=== PATIENT | male | born 1970 | race African-American/Black ===

== ENCOUNTER 2024-02-20 18:57 | Emergency (ER) | payer SELFPAY ==
[2024-02-20] VITALS (9 sets, daily range): BP systolic 155–169; BP diastolic 102–109; PULSE 84–95; RESP 15–19; TEMP 36.8; O2SAT 96–99; BMI 50.4
--- NOTE | 2024-02-20 19:22 | ED.VIS.DYS ---
HPI History of Present Illness Chief Complaint: Asthma [facility] Medical History (Updated 02/20/24 @ 19:10 by Lilly Rivera) Asthma Home Medications ?Medication ?Instructions ?Recorded ?Last Taken ?Type albuterol sulfate 90 mcg/actuation 90 mcg IH Q6H PRN PRN Asthma 05/17/13 Unknown History aerosol inhaler (Proventil HFA) metoprolol tartrate 50 mg tablet 50 mg PO BID 05/17/13 Unknown History hydralazine 50 mg tablet 50 mg PO TID ##90 12/25/14 Unknown Rx ciprofloxacin HCl 500 mg tablet 500 mg PO BID ##10 05/27/16 Unknown Rx ipratropium bromide 0.02 % 2.5 ml inhalation Q6H PRN 02/20/24 Unknown Rx solution for inhalation shortness of breath or wheezing #150 mL prednisone 50 mg tablet 50 mg PO DAILY #5 tabs 02/20/24 Unknown Rx Allergy/AdvReac Type Severity Reaction Status Date / Time hydrochlorothiazide Allergy Other Verified 02/20/24 19:10 amoxicillin (Amoxicillin) AdvReac Upset Verified 02/20/24 19:10 Stomach Surgical History no surgical history Social History Smoking Status: Never smoker EXAM Physical Exam Const Vital Signs: 02/20/24 18:57 02/20/24 19:00 02/20/24 19:04 Temperature 98.2 F 98.2 F Temperature Source Oral Oral Pulse Rate 91 91 Respiratory Rate 19 H 17 Respiratory Effort Respiratory Pattern Blood Pressure 155/103 H 155/103 H Blood Pressure Mean 120 120 Pulse Ox 96 96 Oxygen Delivery Method Room Air Room Air 02/20/24 19:11 02/20/24 19:46 02/20/24 19:51 Temperature 98.2 F Temperature Source Oral Pulse Rate 84 88 Respiratory Rate 16 15 Respiratory Effort Short of Breath Labored Respiratory Pattern Normal Blood Pressure 169/109 H Blood Pressure Mean 129 Pulse Ox 97 Oxygen Delivery Method Room Air 02/20/24 20:49 02/20/24 21:17 Temperature 98.2 F Temperature Source Pulse Rate 95 95 Respiratory Rate 19 H 19 H Respiratory Effort Respiratory Pattern Blood Pressure 169/102 H 169/102 H Blood Pressure Mean 124 124 Pulse Ox 99 99 Oxygen Delivery Method Room Air MDM MDM MDM Narrative Medical decision making narrative: HISTORY OF PRESENT ILLNESS: 53-year-old male presents with Concern for asthma attack. Notes is for wheezing, received Solu-Medrol and DuoNeb via EMS. The patient denies recent surgery in the last 4 weeks or immobilization in the last 3 days, denies previous diagnosis of DVT or PE, hemoptysis, unilateral leg swelling or malignancy with treatment the last 6 months or palliative. No estrogen use noted. REVIEW OF SYSTEMS: Pertinent positives: Shortness of breath Pertinent negatives: Chest pain, leg swelling, hemoptysis PHYSICAL EXAM: Nursing triage notes reviewed, Vital signs reviewed Constitutional: please see mdm HENT: MMM Eyes: Pupils equal round and reactive to light, Extraocular muscles intact Neck: No stridor, no JVD, full neck ROM Lungs: Clear to auscultation, No wheezing or rales. No increased work of breathing, no conversational dyspnea, no accessory muscle use, no nasal flaring. No respiratory distress noted Heart: Regular rate and rhythm, No murmurs, No rubs and No gallops, 2+ distal pulses (radial, femoral, posterior tibial) in all extremities Abdomen: Soft, there is no tenderness, rigidity, rebound or guarding, no obvious peritoneal signs, no palpable pulsatile abdominal masses, no auscultated abdominal bruit : No CVAT Extremities: No edema Neuro: No new focal neurological deficits, cranial nerves II through XII intact, 5/5 strength in all present extremities. Intact sensation to light touch in all present extremities, 2+ reflexes bilateral patella tendons. Skin: No rash or lesions noted MEDICAL DECISION MAKING: Chief Complaint: Shortness of breath External records reviewed: Reviewed prior imaging Factors affecting care: asthma Social determinants of health: none History obtained from others: none Consults: none [facility] Narrative: Patient was initially hemodynamically stable, afebrile and nontoxic-appearing. Exam with wheezing consistent with asthma. I considered the following differential diagnosis: Asthma exacerbation, pneumonia, COVID, RSV, flu, anemia, ACS, PE While considered pulm embolism without this is less likely given low risk Wells score, focal lung findings and a more plausible diagnosis of asthma exacerbation ALL IMAGES (IF OBTAINED) HAVE BEEN PERSONALLY REVIEWED AND INTERPRETED BY MYSELF. High-sensitivity troponin is negative, no evidence of myocardial ischemia but no chest pain this adequately rules out ACS I have personally reviewed the patient's chest x-ray. Chest x-ray is unremarkable for pulmonary edema, pneumothorax, pneumonia or focal cardiopulmonary abnormality. EKG COVID/RSV/flu is negative CBC with no leukocytosis, no anemia thrombocytopenia BMP without electrolyte abnormality, noted JAZMIN on CKD Given severe JAZMIN on CKD, asthma exacerbation I offered the patient admission. He was alert and oriented x 3 and had capacity to make his own medical decisions and chose to forego admission at this time. Discussed risk of acute renal failure, risk of needing dialysis. The patient acknowledges the risk and still wanted to go home. He stated he would rather follow-up with his primary doctor. He was prescribed steroids, ipratropium nebulized solution The patient and/or family, caregivers express understanding. The patient and/or family, caregivers agrees with the plan. Shared decision making: I will have a discussion with the patient and or visitors regarding risk/benefits of further testing or admission. They will be made aware of of the risk/benefits inherent in this decision they will be given the opportunity to voice understanding. Total critical care time today provided was at least 0 minutes. This excludes separately billable procedures. Critical care time (if documented) is secondary to the patient having high probability of clinically significant/life threatening deterioration in the patient's condition which required my urgent intervention. Impression: 1. Acute asthma exacerbation 2. JAZMIN on CKD Dispo: Discharge home This note was generated with [employer] dictation software. It may contain incorrect words, spelling, and punctuation that were not noted in review of the chart prior to signing. Lab Data Labs: Laboratory Results - last 24 hr 02/20/24 19:55 WBC 6.6 RBC 5.14 Hgb 13.9 Hct 43.7 MCV 85.0 MCH 27.0 MCHC 31.8 L RDW Std Deviation 50.3 H RDW Coeff of Fausto 16.3 H Plt Count 236 MPV 9.8 Immature Gran % (Auto) 0.500 Neut % (Auto) 64.5 Lymph % (Auto) 23.5 Tama % (Auto) 7.1 Eos % (Auto) 3.6 Baso % (Auto) 0.8 Absolute Neuts (auto) 4.3 Absolute Lymphs (auto) 1.56 Nucleated RBC % 0 Sodium 141 Potassium 4.1 Chloride 109 H Carbon Dioxide 26.0 Anion Gap 6 BUN 43 H Creatinine 4.03 H Estim Creat Clear Calc 35.99 Est GFR (MDRD) Af Amer 20 L Est GFR (MDRD) Non-Af 17 L BUN/Creatinine Ratio 10.7 Glucose 111 H Calcium 8.7 Troponin I High Sens 68 Radiography Diagnostic Testing: Clinical Impression(s) from Imaging Studies Chest X-Ray 02/20/24 19:50 IMPRESSION: No radiographic evidence of acute cardiopulmonary disease. Electronically Signed: Wilber Dumont MD at 20:43 EST Reading Location ID and State: [facility] Tel , Service support , Discharge Plan Triage Chief Complaint: Asthma ED Provider: Pj Yuan Dx/Rx/DC Orders Instructions: CKD Dc, ED Asthma, Acute (Adult) Prescriptions: New ipratropium bromide 0.02 % solution 2.5 ml inhalation Q6H PRN (Reason: shortness of breath or wheezing) Qty: 150 3RF prednisone 50 mg tablet 50 mg PO DAILY Qty: 5 0RF No Action metoprolol tartrate 50 MG tablet 50 mg PO BID Patient Comments: blood pressure albuterol sulfate [Proventil HFA] 6.7 GM HFA aerosol inhaler 90 mcg IH Q6H PRN PRN (Reason: Asthma) Patient Comments: 1-2 puffs breathing hydralazine 50 MG tablet 50 mg PO TID Qty: 90 0RF ciprofloxacin HCl 500 MG tablet 500 mg PO BID Qty: 10 0RF Primary Care Provider: MAU HUBER Referrals: Tutu Barnett MD [Non-Staff] - Activity Restrictions/Additional Instructions: Thank you for trusting us with your care today! Your history and physical exam are consistent with an asthma exacerbation. We also incidentally noticed some severe kidney dysfunction. You are offered admission however decided to follow with your primary doctor. Please take Tylenol (2 pills, 650 mg), ibuprofen (2 pills, 400 mg) every 6 hours as needed for pain and fever control. You are prescribed ipratropium which is another nebulized solution that you can take with your nebulizer to improve breathing as needed every 6 hours. You are also prescribed prednisone to relieve inflammation and improve your breathing. Please return to the emergency department if your symptoms change or worsen. Please follow with your primary care physician for further outpatient evaluation and management. Print Language: Malay Disposition Disposition: Home, Self Care Discharge Date/Time: 02/20/24 21:17
--- NOTE | 2024-02-20 19:36 | EKG12_ITS ---
Test Reason : SOB Blood Pressure : */* mmHG Vent. Rate : 85 BPM Atrial Rate : 85 BPM P-R Int : 154 ms QRS Dur : 92 ms QT Int : 384 ms P-R-T Axes : 72 -16 -19 degrees QTcB Int : 456 ms Normal sinus rhythm ST & T wave abnormality, consider lateral ischemia Consider right ventricular involvement in acute in ferior infarct Abnormal ECG Confirmed by Wilbur Mejia ([id number]), industrial editor SPENCER TINOCO ([id number]) on 02/22/2024 7:01:59 AM Referred By: Confirmed By: Wilbur Mejia
[2024-02-20] MEDS: Ipratropium/Albuterol Sulfate 3 ML AMPUL.NEB INHALATION ×3 (19:50)
--- NOTE | 2024-02-20 19:50 | RAD_ITS ---
EXAM: XR CHEST, 1 VIEW CLINICAL INDICATION: SOB TECHNIQUE: Frontal view of the chest. COMPARISON: Chest from 12/25/2014 FINDINGS: LUNGS AND PLEURAL SPACES: Unremarkable. No consolidation or edema. No pneumothorax. No effusion. HEART: Unremarkable. Cardiac silhouette not enlarged. MEDIASTINUM: Central airways and mediastinal contour are unremarkable. BONES/JOINTS: Unremarkable. No acute fracture. SOFT TISSUES: Unremarkable. RAD/Chest 1 View (Portable) IMPRESSION: No radiographic evidence of acute cardiopulmonary disease. Electronically Signed: Wilber Dumont MD at 20:43 EST ,
[2024-02-20 20:14] LABS: Absolute Lymphocyte Count 1.56 X10^3/uL (0.83-4.51); Absolute Neutrophil Count 4.3 X10^3/uL (2.0-7.7); Basophil# 0.05 X10^3/uL; Basophil% 0.8 % (0-1); Eosinophil# 0.24 X10^3/uL; Eosinophils% 3.6 % (0-5); Hematocrit 43.7 % (40-54); Hemoglobin 13.9 g/dL (13.0-16.5); Lymphocyte # 1.56 X10^3/ul (0.83-4.51); Lymphocyte % 23.5 % (19-41); Mean Corp Hgb Conc 31.8 g/dL (32-36); Mean Platelet Vol. 9.8 fl (6.2-12.0); Monocyte# 0.47 X10^3/uL; Monocyte% 7.1 % (0-10); NRBC Flagged by Analyzer 0 % (0-5); Neutrophil # 4.28 X10^3/uL (2.7-7.7); Neutrophil % 64.5 % (47-70); Platelet Count 236 K/mm3 (150-450); RBC Distribution Width CV 16.3 % (11.6-14.6); RBC Distribution Width SD 50.3 fl (35.1-43.9); Red Blood Count 5.14 M/mm3 (4.6-6.2); White Blood Count 6.6 K/mm3 (4.4-11.0)
[2024-02-20 20:42] LABS: Anion Gap 6 (5-15); BUN 43 mg/dL (7-18); BUN/Creat Ratio 10.7 RATIO (10-20); Calcium,Total 8.7 mg/dL (8.5-10.1); Chloride 109 mmol/L (98-107); Creatinine, Serum 4.03 mg/dL (0.70-1.30); EST Glomerular Filtration Rate 17 mL/min (>60); Est Glom Filt Rate - Afr Amer 20 mL/min (>60); Estimated Creatinine Clearance 35.99 ml/min; Glucose 111 mg/dL (74-106); Potassium 4.1 mmol/L (3.5-5.1); Sodium Level 141 mmol/L (136-145); Troponin-I HS 68 pg/mL (3.0-78.0)
== END 2024-02-20 21:17 | disposition home or self-care (01) ==
PROVIDERS: Emergency Provider Emergency Medicine; Visit Provider Emergency Medicine
DX: J45.901 Unspecified asthma with (acute) exacerbation (principal); N18.9 Chronic kidney disease, unspecified; N17.9 Acute kidney failure, unspecified
CPT/HCPCS: 71045; 80048; 84484; 85025; 87631; 93005; 94640; 99285; A4216